=== PATIENT | female | born 1990 | race Asian ===

== ENCOUNTER 2020-08-12 23:03 | Emergency (ER) | payer BC ==
[~2020-08-12] VITALS: Ht 160 cm; Wt 56.0 kg
--- NOTE | 2020-08-12 23:03 | NUR ---
[facility]
[2020-08-12 23:06] VITALS: BP 138/97
[2020-08-12] MEDS ORDERED: NACL 0.9% 1,000 ML IV ONE (23:20)
--- NOTE | 2020-08-12 23:20 | NUR ---
US SET UP AT BEDSIDE.
--- NOTE | 2020-08-12 23:20 | NUR ---
ABDOMINAL PAIN WITH DIARRHEA X1 DAY. PER [facility] REPORT PT DRANK MILK. PT IS 16 WEEKS . , FIRST PREGANCY ENDED IN MISCARRIAGE. VSS. ABD IS ROUND, HARD, ACTIVE BS, AND TEDNERNESS ON LEFT LOWER QUAD. +VOMITTING. ABD GUARDING AND MOANING NOTED. A&O X4. STEADY GAIT. HEART TONES DETECTED. MED HX: MISCARRIAGE RX: DENIES NKA
--- NOTE | 2020-08-12 23:30 | NUR ---
LAB AT BEDSIDE.
[2020-08-12 23:39] LABS: BASOPHILS # (AUTO) 0.1 K/uL (0.00-0.22); BASOPHILS % (AUTO) 0.4 % (0.0-2.0); EOSINOPHILS % (AUTO) 0.1 % (0.0-4.0); HEMATOCRIT 35.1 % (36-48); HEMOGLOBIN 11.6 g/dL (12.0-16.0); MEAN CORPUSCULAR HEMOGLOBIN 28 pg (27-31); MEAN CORPUSCULAR HGB CONC 33 g/dL (33-37); MEAN CORPUSCULAR VOLUME 85.5 fL (80-94); MONOCYTES # (AUTO) 0.9 K/uL (0.8-1.0); NEUTROPHILS # (AUTO) 15.4 K/uL (1.8-7.7); NEUTROPHILS % (AUTO) 83.5 % (42.2-75.2); PLATELET COUNT (AUTO) 323 K/uL (140-450); RED BLOOD CELL COUNT(AUTO) 4.11 MIL/uL (4.20-5.40); RED CELL DISTRIBUTION WIDTH 14.1 % (11.6-13.7); WHITE BLOOD COUNT (AUTO) 18.5 K/uL (4.8-10.8)
--- NOTE | 2020-08-12 23:39 | NUR ---
ERMD AT BEDSIDE EVALUATING PT.
--- NOTE | 2020-08-12 23:54 | NUR ---
PT HAD 1 VOMITTING EPISODE. ERMD MADE AWARE. NEW ORDERS ADDED: ZOFRAN 4MG IVP.
[2020-08-12] MEDS ORDERED: ONDANSETRON 4 MG/2 ML VIAL ONE (23:55)
[2020-08-12] MEDS ORDERED: ONDANSETRON 4 MG/2 ML VIAL IVP ONE (23:55)
[2020-08-12 23:57] LABS: ALBUMIN 3.1 g/dL (3.4-5.0); ANION GAP 17.4 (8-16); CARBON DIOXIDE 19.7 mmol/L (21-32); CREATININE 0.9 mg/dL (0.6-1.3); POTASSIUM 4.1 mmol/L (3.5-5.1); TOTAL BILIRUBIN 0.2 mg/dL (0.0-1.0)
[2020-08-13] MEDS ORDERED: FAMOTIDINE 20 MG/2 ML VIAL IVP ONE (00:05)
[2020-08-13] MEDS ORDERED: IBUPROFEN 800 MG TAB PO ONE (00:05)
[2020-08-13 00:54] VITALS: BP 132/89
--- NOTE | 2020-08-13 00:57 | NUR ---
Patient discharged with v/s stable. Written and verbal after care instructions given and explained. Patient alert, oriented and verbalized understanding of instructions. Ambulatory with steady gait. All questions addressed prior to discharge. ID band removed. Patient advised to follow up with PMD. Rx of motrin and diclegis given. Patient educated on indication of medication including possible reaction and side effects. Opportunity to ask questions provided and answered.
== END 2020-08-13 00:54 | disposition home or self-care (01) ==
LOC: MED 23:03
DX: O26.891 Other specified pregnancy related conditions, first trimester (principal); R19.7 Diarrhea, unspecified; O13.9 Gestational [pregnancy-induced] hypertension without significant proteinuria, unspecified trimester
CPT/HCPCS: 36415; 80053; 85025; 96361; 96374; 96375; 99284; J2405; J3490; J7030